=== PATIENT | female | born 2005 | race Caucasian/White ===

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

== ENCOUNTER 2023-07-24 15:12 | Emergency (ER) | payer BC, SELFPAY ==
--- NOTE | 2023-07-24 15:24 | ED.URI ---
HPI - URI/Sore Throat General Chief Complaint: Upper Respiratory Infection Stated Complaint: Sinus Problems, Trouble Breathing Time Seen by Provider: 07/24/23 15:18 Source: patient Mode of arrival: ambulatory Limitations: no limitations History of Present Illness HPI Narrative: Patient is a 17-year-old female that presents with 3 days of congestion, runny nose, headache, ear fullness, cough, sore throat shortness of breath with exertion and sinus pressure that started today. Patient denies any fever, chills, body aches, nausea, vomiting, diarrhea. 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 Has taken Benadryl and ibuprofen. Related Data Home Medications Medication Instructions Recorded Confirmed sertraline 50 mg tablet 50 mg PO DAILY 08/30/21 07/24/23 Allergies Allergy/AdvReac Type Severity Reaction Status Date / Time No Known Allergies Allergy Verified 12/25/21 15:25 Review of Systems Review of Systems: All systems reviewed & are unremarkable except as noted in HPI and below Constitutional: Constitutional: Denies body ache(s), Denies chills, Denies fatigue, Denies fever(s), Reports headache(s), Denies malaise and Denies weakness Eyes: Eyes: Denies blurry vision, Denies itchy eyes and Denies loss of vision ENT: Reports otalgia (Ear fullness), Denies headache(s), Reports nasal congestion, Reports nasal discharge, Denies sinus pain, Reports sinus pressure and Denies sore throat Cardiovascular: Cardiovascular: Denies chest pain, Denies irregular heart rhythm and Reports dyspnea on exertion Respiratory: Respiratory: Reports cough and Denies dyspnea Gastrointestinal: Gastrointestinal: Denies abdominal pain, Denies diarrhea, Denies nausea and Denies vomiting Musculoskeletal: Musculoskeletal: Denies back pain, Denies myalgias and Denies arthralgias Integumentary/Breasts: Skin/Breast: Denies pruritus and Denies rash Neurologic: Denies headache(s), Denies loss of vision and Denies weakness Psychiatric: Psychiatric: Reports no additional psychiatric complaints Endocrine: Endocrine: Denies fatigue Allergic/Immunologic: Allergic/Immunologic: Denies itchy eyes PMFSH Past Medical History Medical History Anxiety Cerumen impaction Family History Family History Father Ear problems Social History Social History Smoking status: Never smoker Alcohol intake: never Substance use: never Living arrangements: with family Occupation/Education: student Gender identity (if verbalized by the patient): Female Comments At time of signature, agree with nursing past medical, surgical, social and family history. There is no relevant family history pertinent to the presenting complaint. Exam Const: General: cooperative, healthy appearing, comfortable, no acute distress and well nourished Nutritional Appearance: well nourished Orientation/consciousness: patient oriented x3 Limitations: no limitations HENMT: Head: normal to inspection, normocephalic and atraumatic Ears: hearing grossly normal bilaterally, external ears normal, TM's normal bilaterally, EAC's normal and no periauricular adenopathy Face/Nose/Sinus: Normal external nose present, Abnormal mucous membranes and turbinates present erythematous bilateral and diffuse, normal facial exam, sinuses nontender and face symmetric Face and sinus: normal facial exam, sinuses nontender and face symmetric Mouth: Yes Normal oral and palatal mucosa present, Yes lip normal, Yes tongue normal, Yes Normal salivary glands and ducts present, Yes oropharynx normal and Yes moist mucous membranes Teeth and gingiva: dentition normal Throat: posterior oropharynx normal, tonsils normal and uvula midline Eyes: General: appearance normal, both eyes
[2023-07-24 15:25] VITALS: BP 115/72; PULSE 107; RESP 16; TEMP 37.1; O2SAT 100
== END 2023-07-24 16:01 | disposition home or self-care (01) ==
PROVIDERS: Emergency Provider Nurse Practitioner Family
DX: J06.9 Acute upper respiratory infection, unspecified (principal); Z20.822 Contact with and (suspected) exposure to COVID-19; F41.9 Anxiety disorder, unspecified
CPT/HCPCS: 87426; 99213; C9803; G0463

== ENCOUNTER 2023-11-19 17:44 | Outpatient (CLI) | payer BC, SELFPAY ==
[2023-11-19 18:44] LABS: Basophils Absolute Auto 0.1 K/mm3 (0.0-0.1); Basophils Percent Auto 0.9 % (0.2-1.2); Eosinophils Absolute Auto 0.2 K/mm3 (0-0.3); Hematocrit 35.4 % (37.0-47.0); Hemoglobin 10.3 g/dL (12.0-15.0); Immature Granulocyte Absolute 0.02 K/mm3 (0.00-0.031); Immature Granulocyte Percent A 0.3 % (0-0.5); Lymphocytes Absolute Auto 2.12 K/mm3 (0.9-3.2); Lymphocytes Percent Auto 30.8 % (18.3-44.2); Mean Corpuscular HGB Conc 29.1 g/dl (32-36); Mean Corpuscular Hemoglobin 22.8 pg (26-34); Mean Corpuscular Volume 78.3 fl (80-100); Mean Platelet Volume 10.3 fl (7.4-10.4); Monocytes Absolute Auto 0.4 K/mm3 (0.1-0.6); Monocytes Percent Auto 6.4 % (2.6-8.5); Neutrophils Percent Auto 58.6 % (45.5-73.1); Platelet Count Result 357 k/mm3 (150-375); Red Blood Count 4.52 M/mm3 (4.2-5.4); Red Cell Distribution Width 15.6 % (11.5-14.5); White Blood Count 6.9 K/mm3 (4.5-10.0)
[2023-11-19 18:58] LABS: Potassium 3.9 mmol/L (3.4-5.0)
[2023-11-19 19:02] LABS: Alanine Aminotransferase 23 U/L (6-35); Albumin Level 4.5 g/dL (3.5-5.1); Alkaline Phosphatase 103 U/L (38-126); Anion Gap 12 mmol/L (8-16); Aspartate Amino Transferase 31 U/L (14-36); Bilirubin,Total 0.3 mg/dL (0.2-1.3); Blood Urea Nitrogen 8 mg/dL (7-17); CRP < 0.5 mg/dL (<1.0); Calcium 8.8 mg/dL (8.4-10.2); Carbon Dioxide 20 mmol/L (22-30); Chloride 108 mmol/L (98-107); Estimated Glomerular Filt Rate > 60; Glucose 81 mg/dL (65-110); Sodium 140 mmol/L (137-145)
[2023-11-19 19:04] LABS: Immunoglobulin A 322 mg/dL (70-400)
[2023-11-19 19:06] LABS: Ovalocytes 2+ (NORMAL); Platelet Estimate Adequate (Adequate); Poikilocytosis 1+ (NORMAL); Schistocytes None Seen (NORMAL)
[2023-11-19 19:20] LABS: Erythrocyte Sedimentation Rate 18 mm/hr (0-20)
[2023-11-23 09:13] LABS: Tissue Transglutaminase IgA Ab >250.0 U/mL (<15.0)
== END 2023-11-19 17:45 | disposition home or self-care (01) ==
PROVIDERS: PCP Pediatrics; Visit Provider Nurse Practitioner Family
DX: R10.9 Unspecified abdominal pain (principal)
CPT/HCPCS: 36415; 80053; 82784; 84443; 85025; 85652; 86140; 86364

== ENCOUNTER 2023-12-18 01:00 | Day surgery (SDC) | payer BC, SELFPAY ==
[2023-12-04 11:39] VITALS: BMI 18.1
--- NOTE | 2023-12-16 11:24 | SUR.PREOP ---
Patient called regarding upcoming procedure. Reviewed preop instructions, appointment times, and procedure prep.
[2023-12-18 13:00] VITALS: BP 105/63; PULSE 84; RESP 19; TEMP 36.4; O2SAT 100
[2023-12-18] MEDS: LACTATED RINGERS 1,000 ML 150 ML IV CONT (13:12)
--- NOTE | 2023-12-18 13:22 | P.PNAN_ITS ---
Anes - Initial Pre Proc Eval Procedure: Operation Date: 12/18/23 14:00 Proposed Procedures p Esophagogastroduodenoscopy - Monty Carter MD Date/Time: 12/18/23 13:22 Surgeon: Monty Carter MD Pre Op Diagnosis: iron deficiency anemia, nausea, early satiety Patient Data Age: 18 Gender: F Height: 1.63 m Weight: 47.6 kg Last Vital Signs Temp 97.6 F 12/18/23 13:00 Pulse 84 12/18/23 13:00 Resp 19 12/18/23 13:00 BP 105/63 12/18/23 13:00 Pulse Ox 100 12/18/23 13:00 O2 Del Method Room Air 12/18/23 13:00 Allergies Allergy/AdvReac Type Severity Reaction Status Date / Time banana Allergy Mild Swelling Verified 12/18/23 12:59 of the Eye Home Medications Medication Instructions Recorded Confirmed Type sertraline 50 mg tablet 50 mg PO DAILY 08/30/21 12/04/23 History albuterol sulfate 90 mcg/actuation 2 puff inhalation QID PRN 07/24/23 12/04/23 Rx aerosol inhaler shortness of breath or wheezing #6.7 grams inhalational spacing device #1 ea 07/24/23 12/04/23 Rx (Aerochamber MV spacer) Laboratory Tests 12/18/23 13:03 Beta HCG, Quant Pending Patient hx anesthesia problems: none Family hx anesthesia problems: none Results Review: All pre-operative results and documents have been reviewed as part of the pre- operative evaluation. [facility] Past Medical History Medical History (Updated 12/03/23 @ 11:11 by Nieves Kirk APRN) Abdominal pain Anxiety Cerumen impaction Decreased appetite Early satiety Elevated anti-tissue transglutaminase (tTG) IgA level AUDREY (iron deficiency anemia) Loose stools Nausea Weight loss Family History Family History Father Ear problems Social History Social History Smoking status: Never smoker Alcohol intake: never Alcohol use details: Socially Substance use: never Substance use type: does not use Living arrangements: with family Occupation/Education: student Gender identity (if verbalized by the patient): Female Anechele - Nikkie Final PreProcedure Day of Procedure 12/18/23 13:22 Patient weight: normal Heart: regular rate and rhythm Lungs: clear to auscultation Airway: Mallampati scale class II Neurological: alert and oriented Last oral intake: >/= 8 hours ASA classification: II Emergent: no Anesthetic plan: proceed Anesthesia type and monitoring: general GIVS and standard monitoring Results Review: All pre-operative results and documents have been reviewed as part of the pre- operative evaluation. Informed Consent: The patient's anesthetic plan and its attendant risks and benefits were discussed with the patient/family/POA. Questions were solicited and answers provided to the satisfaction of the patient/family/POA.
--- NOTE | 2023-12-18 13:23 | WPDHPUPDATE1 ---
History and Physical Update Update Date/Time: 12/18/23 13:23 History and Physical has been reviewed, including an updated exam of the patient. There are NO changes in the patient's condition. Risks, benefits, and alternatives have been discussed and questions answered. Patient agrees to proceed with procedure.
[2023-12-18 13:42] LABS: Beta HCG Quantitative < 2.39 mIU/ML
[2023-12-18 13:54] VITALS: BP 86/48; PULSE 83; RESP 18; O2SAT 100
[2023-12-18 14:04] VITALS: BP 92/57; PULSE 72; RESP 18; O2SAT 100
[2023-12-18 14:14] VITALS: BP 107/66; PULSE 84; RESP 19; O2SAT 100
== END 2023-12-18 14:36 | disposition home or self-care (01) ==
PROVIDERS: Anesthesiology; PCP Pediatrics; Visit Provider Internal Medicine Gastroenterology
PROC: 0DJ08ZZ Inspection of Upper Intestinal Tract, Via Natural or Artificial Opening Endoscopic (ICD-10-PCS; CPT 43235; principal; 2023-12-18 14:00)
DX: K29.80 Duodenitis without bleeding (principal); K29.50 Unspecified chronic gastritis without bleeding; J45.909 Unspecified asthma, uncomplicated; F41.9 Anxiety disorder, unspecified; D50.9 Iron deficiency anemia, unspecified; Z79.51 Long term (current) use of inhaled steroids
CPT/HCPCS: 43239; 36415; 84702; 88305; 88342; J2001; J2704; J7120

== ENCOUNTER 2024-07-10 16:24 | Emergency (ER) | payer BC, SELFPAY ==
[2024-07-10 16:34] VITALS: BP 106/73; PULSE 87; RESP 16; TEMP 36.8; O2SAT 100
--- NOTE | 2024-07-10 16:45 | ED.URI ---
HPI - URI/Sore Throat General Chief Complaint: Upper Respiratory Infection Stated Complaint: SORE THROAT/CONGESTION/HEADACHE Time Seen by Provider: 07/10/24 16:45 Source: patient and RN notes reviewed Mode of arrival: ambulatory Limitations: no limitations History of Present Illness HPI Narrative: 18-year-old female presents with concern for 3 day history of sore throat, nasal congestion. She denies fever, body aches, chills, sweats. Reports she has been taking [id number]. 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 MD elicited complaint: sore throat and nasal congestion Related Data Home Medications Medication Instructions Recorded Confirmed sertraline 50 mg tablet 50 mg PO DAILY 08/30/21 12/26/23 Allergies Allergy/AdvReac Type Severity Reaction Status Date / Time banana Allergy Mild Swelling Verified 12/26/23 11:39 of the Eye amoxicillin Allergy Rash Verified 07/10/24 16:44 Review of Systems Review of Systems: CONSTITUTIONAL: Denies malaise, chills, sweats, or fever. EYES: Denies visual changes, redness, or discharge. ENT: Reports rhinorrhea, congestion, and sore throat. CARDIOVASCULAR: Denies chest pain, palpitations, or edema. RESPIRATORY: Denies cough. Denies dyspnea. GASTROINTESTINAL: Denies abdominal pain, nausea, vomiting, diarrhea SKIN: Denies rash or itching. MUSCULOSKELETAL: Denies myalgia. NEUROLOGIC: Denies headache. All systems reviewed & are unremarkable except as noted in HPI and below PMFSH Past Medical History Medical History (Updated 07/10/24 @ 16:49 by Adriana De La Rosa NP) Abdominal pain Anxiety Celiac disease Cerumen impaction Decreased appetite Early satiety Elevated anti-tissue transglutaminase (tTG) IgA level Gastritis AUDREY (iron deficiency anemia) Loose stools Nausea Weight loss Family History Family History Father Ear problems Social History Social History Smoking status: Never smoker Alcohol intake: never Alcohol use details: Socially Substance use: never Substance use type: does not use Living arrangements: with family Occupation/Education: student Gender identity (if verbalized by the patient): Female Comments At time of signature, agree with nursing past medical, surgical, social and family history. There is no relevant family history pertinent to the presenting complaint Exam Narrative: GENERAL: Well-appearing, well-nourished, and in no acute distress. HEAD: Normocephalic EYES: PERRLA, conjunctivae clear ENT: Nares clear. Mucous membranes moist. TM pearly curtis with dull light reflex bilaterally; no tragal tenderness. Oropharynx not erythematous without lesions. Tonsils not enlarged and without exudate, no drooling, no hoarseness, no trismus, uvula midline. NECK: Supple. No lymphadenopathy CHEST: Clear to auscultation, breath sounds equal. No wheezing, rhonchi, rales, or stridor. No respiratory distress, speaks in full sentences. HEART: Regular rate and rhythm. No murmur heard. SKIN: Warm, dry, no rash. NEURO: Alert and oriented x3. PSYCH: Normal mood and affect Course Course Emergency Course: Patient is aware of diagnosis, understands and agrees to treatment plan. Anticipatory guidance given. Patient agrees to follow-up as directed and is aware of reasons to seek care at the emergency department. Portions of this record may have been created with voice recognition software Level of Care: Express Care Visit Vital Signs Vital signs: Vital Signs Temperature 98.3 F 07/10/24 16:34 Pulse Rate 87 07/10/24 16:34 Respiratory Rate 16 07/10/24 16:34 Blood Pressure 106/73 07/10/24 16:34 Pulse Oximetry 100 07/10/24 16:34 Temperature 98.3 F 07/10/24 16:34 Pulse Rate 87 07/10/24 16:34 Respiratory Rate 16 07/10/24 16:34 Blood Pressure 106/73 07/10/24 16:34 Pulse Oximetry 100 07/10/24 16:34 Re
[2024-07-10 16:48] LABS: EDSTREPNEGPOS1 Negative
== END 2024-07-10 16:52 | disposition home or self-care (01) ==
PROVIDERS: Emergency Provider Nurse Practitioner; PCP Pediatrics
DX: J06.9 Acute upper respiratory infection, unspecified (principal); K90.0 Celiac disease; F41.9 Anxiety disorder, unspecified
CPT/HCPCS: 87081; 87880; 99213; G0463

== ENCOUNTER 2024-08-09 15:10 | Emergency (ER) | payer BC, SELFPAY ==
[2024-08-09] VITALS (22 sets, daily range): BP systolic 109–126; BP diastolic 70–86; PULSE 72–99; RESP 12–21; TEMP 36.8; O2SAT 98–100
--- NOTE | 2024-08-09 19:12 | PC.NURSE ---
Assumed care of patient at this time.
[2024-08-09 19:46] LABS: Basophils Absolute Auto 0.1 K/mm3 (0.0-0.1); Basophils Percent Auto 0.8 % (0.2-1.2); Eosinophils Absolute Auto 0.3 K/mm3 (0-0.3); Eosinophils Percent Auto 5.1 % (0-4.4); Hematocrit 30.2 % (37.0-47.0); Hemoglobin 9.2 g/dL (12.0-15.0); Immature Granulocyte Absolute 0.03 K/mm3 (0.00-0.031); Immature Granulocyte Percent A 0.5 % (0-0.5); Lymphocytes Absolute Auto 1.78 K/mm3 (0.9-3.2); Lymphocytes Percent Auto 26.8 % (18.3-44.2); Mean Corpuscular HGB Conc 30.5 g/dl (32-36); Mean Corpuscular Hemoglobin 22.7 pg (26-34); Mean Corpuscular Volume 74.6 fl (80-100); Mean Platelet Volume 9.7 fl (7.4-10.4); Monocytes Absolute Auto 0.5 K/mm3 (0.1-0.6); Monocytes Percent Auto 8.1 % (2.6-8.5); Neutrophils Absolute Auto 3.9 K/mm3 (1.3-6.7); Neutrophils Percent Auto 58.7 % (45.5-73.1); Platelet Count Result 307 k/mm3 (150-375); Red Blood Count 4.05 M/mm3 (4.2-5.4); Red Cell Distribution Width 17.2 % (11.5-14.5); White Blood Count 6.7 K/mm3 (4.5-10.0)
[2024-08-09] MEDS: SODIUM CHLORIDE 0.9% IV 1,000 ML 999 ML IV CONT ×2 (19:48→20:45)
[2024-08-09 19:55] LABS: Alanine Aminotransferase 14 U/L (6-35); Albumin Level 4.4 g/dL (3.5-5.1); Alkaline Phosphatase 79 U/L (38-126); Anion Gap 10 mmol/L (4-12); Aspartate Amino Transferase 27 U/L (14-36); Bilirubin,Total 0.2 mg/dL (0.2-1.3); Blood Urea Nitrogen 12 mg/dL (7-17); Calcium 8.5 mg/dL (8.4-10.2); Carbon Dioxide 20 mmol/L (22-30); Chloride 108 mmol/L (98-107); Estimated Glomerular Filt Rate > 60; Glucose 86 mg/dL (65-110); Potassium 3.8 mmol/L (3.4-5.0); Sodium 138 mmol/L (137-145)
[2024-08-09 20:05] LABS: INR 1.1; Partial Thromboplastin Time 28.4 Seconds (22.3-36.8); Prothrombin Time 14.2 Seconds (11.1-14.7)
--- NOTE | 2024-08-09 20:10 | ED.GENADULT ---
HPI - General Adult General Chief complaint: Recheck/Abnormal Lab/Rx Stated complaint: losing balance Time Seen by Provider: 08/09/24 18:52 History of Present Illness HPI narrative: 18-year-old female presented to the emergency department for evaluation for intermittent lightheaded dizziness. Patient does have a longstanding history anemia. Patient initially attributed this to her celiac disease. Patient states her celiac disease is currently under control. Patient states over the course of the last few weeks she has had increased episodes of lightheaded dizziness that is worsened with exertion. Patient is currently menstruating but denies history of heavy menses. Patient denies any current chest pain shortness of breath nausea vomiting or diarrhea. Related Data Home Medications Medication Instructions Recorded Confirmed sertraline 50 mg tablet 50 mg PO DAILY 08/30/21 12/26/23 Allergies Allergy/AdvReac Type Severity Reaction Status Date / Time banana Allergy Mild Swelling Verified 08/09/24 19:38 of the Eye amoxicillin Allergy Rash Verified 08/09/24 19:38 Review of Systems Review of Systems: All systems reviewed & are unremarkable except as noted in HPI and below PMFSH Past Medical History Medical History (Updated 08/10/24 @ 00:00 by Background Daemon) Abdominal pain Anxiety Celiac disease Cerumen impaction Decreased appetite Early satiety Elevated anti-tissue transglutaminase (tTG) IgA level Gastritis AUDREY (iron deficiency anemia) Loose stools Nausea Weight loss Family History Family History Father Ear problems Social History Social History Smoking status: Never smoker Alcohol intake: never Alcohol use details: Socially Substance use: never Substance use type: does not use Living arrangements: with family Occupation/Education: student Gender identity (if verbalized by the patient): Female Exam Narrative: APPEARANCE: Well appearing, no pain, no distress, well-nourished. HEAD: normocephalic, atraumatic. EYES: PERRLA/EOMI, conjunctivae clear. NOSE: Normal no drainage EARS:TMS clear with good light reflex. THROAT: Pharynx clear, no exudate. NECK: Supple. No adenopathy, no masses. RESPIRATORY: Airway patent, respirations nonlabored. Clear to auscultation bilaterally, no rales, rhonchi, wheezing. CARDIOVASCULAR: Regular rate and rhythm without murmurs rubs or gallops. ABDOMINAL: Soft, nontender, nondistended, normal bowel sounds MUSCULOSKELETAL: Moves all extremities. Strength/ROM intact, No edema, No calf tenderness. NEURO: Alert. Cranial nerves II through XII intact. Good gait. Good coordination SKIN: Warm, dry. Normal Color Course Vital Signs Vital signs: Vital Signs Temperature 98.2 F 08/09/24 15:18 Pulse Rate 99 08/09/24 15:18 Respiratory Rate 16 08/09/24 15:18 Blood Pressure 122/80 08/09/24 15:18 Pulse Oximetry 100 08/09/24 15:18 Oxygen Delivery Room Air 08/09/24 15:18 Temperature 98.2 F 08/09/24 15:18 Pulse Rate 93 08/09/24 22:22 Respiratory Rate 20 08/09/24 22:22 Blood Pressure 110/70 08/09/24 22:22 Pulse Oximetry 100 08/09/24 22:22 Oxygen Delivery Room Air 08/09/24 19:38 Medical Decision Making MDM Narrative Medical decision making narrative: 18-year-old female presents emergency department for evaluation for concern of anemia and lightheadedness. Patient is not tachycardic. Patient had negative orthostatic vital signs. Patient does have a mild anemia with a hemoglobin of 9.2. Patient's presents hemoglobin was 10.3. No acute abnormalities on the patient's CMP. Differential Diagnosis Differential Diagnosis: Dehydration, anemia, infection Vital Signs Vital Signs: Vital Signs Temperature 98.2 F 08/09/24 15:18 Pulse Rate 99 08/09/24 15:18 Respiratory Rate 16 08/09/24 15:18 Blood P
[2024-08-09 20:18] LABS: Anisocytosis 1+; Burr Cells 1+; Hypochromasia 1+; Large Platelets Present; Ovalocytes 2+; Platelet Estimate Adequate (Adequate); Poikilocytosis 1+; Schistocytes Rare
== END 2024-08-09 22:25 | disposition home or self-care (01) ==
PROVIDERS: Emergency Provider Emergency Medicine; PCP Pediatrics
DX: R42 Dizziness and giddiness (principal); D64.9 Anemia, unspecified; K90.0 Celiac disease; D50.9 Iron deficiency anemia, unspecified; F41.9 Anxiety disorder, unspecified
CPT/HCPCS: 36415; 80053; 85025; 85610; 85730; 96360; 96361; 99283; J7030

== ENCOUNTER 2024-12-16 14:08 | Emergency (ER) | payer BC, SELFPAY ==
--- NOTE | 2024-12-16 14:18 | ED.URI ---
HPI - URI/Sore Throat General Chief Complaint: Upper Respiratory Infection Stated Complaint: SORE THROAT/FEVER Time Seen by Provider: 12/16/24 14:10 Source: patient Mode of arrival: ambulatory Limitations: no limitations History of Present Illness HPI Narrative: Patient is a 19-year-old female who presents with sore throat, congestion and fever for 2 days. Patient reports sore throat is worse in the morning. Denies any nausea vomiting, diarrhea. Has taken [id number] medications with no relief. Related Data Home Medications ?Medication ?Instructions ?Recorded ?Confirmed ?Last Taken ?Type sertraline 50 mg tablet 50 mg PO DAILY 08/30/21 12/26/23 Unknown History Allergies Allergy/AdvReac Type Severity Reaction Status Date / Time banana Allergy Mild Swelling Verified 12/16/24 14:31 of the Eye amoxicillin Allergy Rash Verified 12/16/24 14:31 Review of Systems Review of Systems: All systems reviewed & are unremarkable except as noted in HPI and below Constitutional: Constitutional: Denies body ache(s), Denies chills, Denies fatigue, Reports fever(s), Denies headache(s), Denies malaise and Denies weakness Eyes: Eyes: Denies blurry vision, Denies itchy eyes and Denies loss of vision ENT: Denies otalgia, Denies headache(s), Reports nasal congestion, Denies sinus pain and Reports sore throat Cardiovascular: Cardiovascular: Denies chest pain, Denies irregular heart rhythm and Denies dyspnea Respiratory: Respiratory: Denies cough and Denies dyspnea Gastrointestinal: Gastrointestinal: Denies abdominal pain, Denies diarrhea, Denies nausea and Denies vomiting Musculoskeletal: Musculoskeletal: Denies back pain, Denies myalgias and Denies arthralgias Integumentary/Breasts: Skin/Breast: Denies pruritus and Denies rash Neurologic: Denies headache(s), Denies loss of vision and Denies weakness Psychiatric: Psychiatric: Reports no additional psychiatric complaints Endocrine: Endocrine: Denies fatigue Allergic/Immunologic: Allergic/Immunologic: Denies itchy eyes PMFSH Past Medical History Medical History Gastritis Celiac disease Loose stools Abdominal pain Decreased appetite Weight loss Early satiety Nausea AUDREY (iron deficiency anemia) Elevated anti-tissue transglutaminase (tTG) IgA level Cerumen impaction Anxiety Family History Family History Father Ear problems Social History Social History Smoking status: Never smoker Alcohol intake: never Alcohol use details: Socially Substance use: never Substance use type: does not use Living arrangements: with family Occupation/Education: student Gender identity (if verbalized by the patient): Female Comments At time of signature, agree with nursing past medical, surgical, social and family history. There is no relevant family history pertinent to the presenting complaint. Exam Const: General: cooperative, healthy appearing, comfortable, no acute distress and well nourished Nutritional Appearance: well nourished Orientation/consciousness: patient oriented x3 Limitations: no limitations HENMT: Head: normal to inspection, normocephalic and atraumatic Ears: hearing grossly normal bilaterally, external ears normal, TM's normal bilaterally, no periauricular adenopathy and Abnormal EAC present excessive cerumen bilateral Face/Nose/Sinus: Normal external nose present, Abnormal mucous membranes and turbinates present erythematous bilateral and diffuse, normal facial exam, sinuses nontender and face symmetric Face and sinus: normal facial exam, sinuses nontender and face symmetric Mouth: Yes Normal oral and palatal mucosa present, Yes lip normal, Yes tongue normal, Yes Normal salivary glands and ducts present, Yes oropharynx normal and Yes moist mucous membranes Teeth and gingiva: dentition normal Throat: posterior oropharynx normal, tonsils normal and uvula midline Eyes: General: appearance normal, both eyes and all related structures Alignment and Position: alignment normal and position normal Periorbital: periorbital findings normal Eyelids: eyelids normal Pupils: Equal, round and reactive pupils present Neck: Neck: normal visual inspection, full ROM, no lymphadenopathy and supple Chest: Chest palpation & inspection: normal inspection of the chest and normal palpation of entire chest wall Resp: Effort & Inspection: normal respiratory effort and able to speak in complete sentences Auscultation: clear to auscultation bilaterally, no crackles, no rales, no rhonchi and no wheezes Cardio: Rate: regular rate Rhythm: regular rhythm Heart sounds: S1 normal heart sound present and S2 normal heart sound present GI: Inspection: normal to inspection Skin: General skin exam: normal color and no rashes or lesions noted Neuro: General: patient oriented x3 and moves all extremities Cranial nerves: Yes Equal, round and reactive pupils present Speech: normal speech Gait exam (Neuro): Normal gait present Extrem: General: normal to inspection, full ROM and no edema Psych: Appearance: grossly normal and well kempt Mental Status: mental status grossly normal Speech and movement: Normal speech and movement present Affect: normal affect Attitude: cooperative Thought process: Normal thought process present Course Course Emergency Course: Discharge instructions reviewed with patient, as well as provided in writing per nursing staff. The instructions also include specific and strict return/GO TO THE ER as well as f/u information. All questions have been answered, and the patient deny any further questions with discharge and discharge plan. Portions of this record may have been created with voice recognition software Level of Care: Express Care Visit Vital Signs Vital signs: Vital Signs Temperature 36.8 C 12/16/24 14:29 Pulse Rate 94 12/16/24 14:29 Respiratory Rate 16 12/16/24 14:29 Blood Pressure 112/73 12/16/24 14:29 Pulse Oximetry 100 12/16/24 14:29 Temperature 36.8 C 12/16/24 14:29 Pulse Rate 94 12/16/24 14:29 Respiratory Rate 16 12/16/24 14:29 Blood Pressure 112/73 12/16/24 14:29 Pulse Oximetry 100 12/16/24 14:29 Reviewed MDM - URI/Sore Throat MDM Narrative Medical decision making narrative: Pt well hydrated appearing, in no respiratory distress, hemodynamically stable. Recommend supportive care. The patient is stable at time of discharge the clinical impression was discussed and the patient was given the opportunity to ask questions, which were addressed as completely as possible given the information available at present. Anticipatory guidance and return to care precautions were discussed and the importance of primary care follow-up was stressed and encouraged. The patient voiced understanding of the plan, indications to return, and the need for follow-up. Differential diagnosis considered: Napier virus, strep pharyngitis, allergic rhinitis, upper respiratory tract infection, sinusitis, rhinosinusitis, nasopharyngitis. viral pharyngitis, otitis media, otitis externa, otitis effusion, foreign body, cerumen impaction, viral syndrome, and influenza.? Exam findings show no acute concerns or changes; patient is non-toxic appearing and is in no distress.? Patient is appropriate for outpatient treatment and follow-up.? Medical Records Attestation: I reviewed the patient's medical records. Lab Data Attestation: I reviewed the patient's lab results. Labs: Lab Results 12/16/24 Range/Units 14:42 POC Grp A Strep Screen Negative (Negative) Discharge Plan Discharge Clinical Impression: Upper respiratory infection Qualifiers: URI type: acute nasopharyngitis (common cold) Qualified Code(s): J00 - Acute nasopharyngitis [common cold] Patient Disposition: Home, Self-Care Condition: Stable Instructions: Upper Respiratory Infection (ED) Additional Instructions: Your rapid strep swab was negative today at [facility]. A throat culture will be sent to the laboratory for further testing. If the test is positive, you will receive a phone call within 48 hours and an appropriate antibiotic will be initiated at that time. Your symptoms are likely due to a viral illness, which is not treated with antibiotics. Viral symptoms can be present for up to a few weeks. -Alternate Tylenol and Motrin per package directions for fever or pain. -Antihistamine medication such as Benadryl/Zyrtec at night and Claritin/Alma during the day can help improve symptoms. -Use Flonase twice a day for 5 days then daily to help reduce the inflammation and dry up your sinuses. -You can also use Sudafed behind the pharmacy counter(12 or 24 hour). Be sure to drink plenty of water with these medications at least 8 ounces with every dose and it is important to drink 8 to 10 glasses of water per day. Water is a natural decongestant -Eat and drink things that are easy to swallow, like tea or soup, or popsicles. -Oral rinses such as: Salt water gargles and/or may use topical anesthetic (eg. Chloraseptic spray) or lozenges to relieve dryness or throat pain). -Frequent hand washing or hand [employer] is one of the best ways to prevent spread of infection. -Using a vaporizer or humidifier at night will also help thin secretions and help with coughing up phlegm. -Follow up with primary care provider in 3-5 days if condition is not improving - For new or worsening symptoms go directly to the nearest ER Patient Language: Montserratian Prescriptions: No Action sertraline 50 mg tablet 50 mg PO DAILY Follow-up/Referrals: Nan Alexander MD [Primary Care Provider] - 3 Days Time of Disposition: 14:54
[2024-12-16 14:29] VITALS: BP 112/73; PULSE 94; RESP 16; TEMP 36.8; O2SAT 100
[2024-12-16 14:44] LABS: EDSTREPNEGPOS1 Negative (Negative)
== END 2024-12-16 15:00 | disposition home or self-care (01) ==
PROVIDERS: Emergency Provider Nurse Practitioner Family; PCP Pediatrics
DX: J00 Acute nasopharyngitis [common cold] (principal)
CPT/HCPCS: 87081; 87880; 99213; G0463

== ENCOUNTER 2025-06-17 16:44 | Emergency (ER) | payer BC, SELFPAY ==
[2025-06-17 16:53] VITALS: BP 111/77; PULSE 93; RESP 18; TEMP 36.6; O2SAT 100
--- NOTE | 2025-06-17 17:12 | ED.URI ---
HPI - URI/Sore Throat General Chief Complaint: Upper Respiratory Infection Stated Complaint: Cough/Sore Throat/Fever Source: patient Mode of arrival: ambulatory Limitations: no limitations History of Present Illness HPI Narrative: 19-year-old presented for complaint of cough, nasal congestion and drainage, headache and ear pressure for 3 weeks. Also endorses a ?rattling? sound with deep breaths. Cough is rarely productive. She feels she cannot take in a full deep breath. Endorses intermittent fevers and sore throat. Denies nausea, vomiting, diarrhea or lethargy. Related Data Home Medications ?Medication ?Instructions ?Recorded ?Confirmed ?Last Taken ?Type sertraline 50 mg tablet 50 mg PO DAILY 08/30/21 06/17/25 Unknown History Allergies Allergy/AdvReac Type Severity Reaction Status Date / Time banana Allergy Mild Swelling Verified 06/17/25 16:52 of the Eye Penicillins Allergy Unknown Hives Verified 06/17/25 16:52 amoxicillin Allergy Rash Verified 06/17/25 16:52 Review of Systems Review of Systems: CONSTITUTIONAL: Denies body aches, fever, chills, or sweats. EYES: Denies visual changes, redness, or discharge. ENT: reports rhinorrhea, congestion, sore throat, or otalgia. CARDIOVASCULAR: Denies chest pain, palpitations, or edema. RESPIRATORY: Reports cough, denies sob, wheezing. GASTROINTESTINAL: Denies abdominal pain, nausea, vomiting, or diarrhea. SKIN: Denies rash MUSCULOSKELETAL: Denies back pain NEUROLOGIC: Denies headache, numbness, tingling, or weakness. All systems reviewed & are unremarkable except as noted in HPI and below PMFSH Past Medical History Medical History Gastritis Celiac disease Loose stools Abdominal pain Decreased appetite Weight loss Early satiety Nausea AUDREY (iron deficiency anemia) Elevated anti-tissue transglutaminase (tTG) IgA level Cerumen impaction Anxiety Family History Family History Father Ear problems Social History Social History Smoking status: Never smoker Alcohol intake: never Alcohol use details: Socially Substance use: never Substance use type: does not use Living arrangements: with family Occupation/Education: student Gender identity (if verbalized by the patient): Female Comments At time of signature, I have reviewed and agree with nursing past medical, surgical, social and family history unless otherwise noted. Please see nursing chart for further information. There is no relevant family history pertinent to the presenting complaint Exam Narrative: GENERAL: Well-appearing, in no acute distress. EYES: EOMI. No redness or drainage. Conjunctivae normal. ENT: Mucous membranes pink and moist. Nasal congestion and rhinorrhea. TMs normal bilaterally. Throat normal. Uvula midline. NECK: Normal AROM. Supple. CHEST: No respiratory distress. Occasional moist marshmallow runner cough. Lungs coarse to all jiménez, improves with cough. HEART: Regular rate and rhythm. No murmur appreciated. ABDOMEN: Soft, nontender, nondistended, normal active bowel sounds. EXTREMITIES: Normal range of motion. SKIN: Warm, dry, no rash. Capillary refill normal. Normal skin turgor. NEURO: Alert and oriented x3. Gait steady. PSYCH: Normal affect. Course Course Emergency Course: Patient is aware of diagnosis, understands and agrees to treatment plan. Anticipatory guidance given. Patient agrees to follow-up as directed and is aware of reasons to seek care at the emergency department. Portions of this record may have been created with voice recognition software Level of Care: Express Care Visit Vital Signs Vital signs: Vital Signs Temperature 97.9 F 06/17/25 16:53 Pulse Rate 93 06/17/25 16:53 Respiratory Rate 18 06/17/25 16:53 Blood Pressure 111/77 06/17/25 16:53 Pulse Oximetry 100 06/17/25 16:53 Temperature 97.9 F 06/17/25 16:53 Pulse Rate 93 06/17/25 16:53 Respiratory Rate 18 06/17/25 16:53 Blood Pressure 111/77 06/17/25 16:53 Pulse Oximetry 100 06/17/25 16:53 MDM - URI/Sore Throat MDM Narrative Medical decision making narrative: Discussed physical exam findings. Advised supportive measures and signs/symptoms to go to the ER. Pt is appropriate for outpt treatment and f/u. Differential Diagnosis Differential diagnosis: Likely upper respiratory infection, sinusitis, viral infection, bronchitis, pharyngitis and other (Angioedema, perforation, asthma, pneumonia, PE, tension pneumothorax, cardiac tamponade [place], pericarditis, pleural effusion, CHF, bronchitis, cardiac arrhythmia) Discharge Plan Discharge Clinical Impression: Bronchitis Patient Disposition: Home Condition: Stable Instructions: Antibiotic Form, Acute Bronchitis (ED) Additional Instructions: Take medication as directed albuterol inhaler as needed for shortness of breath/wheezing Recommendations: Flonase spray and Zyrtec (or Claritin/Alma) for nasal congestion over the counter Cough syrup may cause drowsiness; avoid driving or take it at night time. Tylenol every 8 hours as needed for pain Symptomatic treatment includes: rest, fluids, and increase humidity of the air at home. Follow up with your primary care provider as needed in 1 week Go to the ER for worsening symptoms or concerns Patient Language: Barbadian Prescriptions: New azithromycin [Zithromax Z-Armani] 250 mg tablet See Rx Instructions .ROUTE .COMPLEX Qty: 6 0RF Rx Instructions: For 250 mg dose pack: take 500 mg today (day 1), then 250 mg for 4 days (days 2-5) benzonatate 200 mg capsule 200 mg PO TID PRN (Reason: cough) Qty: 20 0RF methylprednisolone [Medrol (Armani)] 4 mg tablets,dose pack See Rx Instructions .ROUTE .COMPLEX Qty: 21 0RF Rx Instructions: orally per package directions albuterol sulfate 90 mcg/actuation HFA aerosol inhaler 2 inh inhalation QID PRN (Reason: shortness of breath or wheezing) Qty: 8.5 0RF No Action sertraline 50 mg tablet 50 mg PO DAILY Follow-up/Referrals: Nan Alexander MD [Primary Care Provider] - Time of Disposition: 17:20
== END 2025-06-17 17:23 | disposition home or self-care (01) ==
PROVIDERS: Emergency Provider Nurse Practitioner Family; PCP Pediatrics
DX: J40 Bronchitis, not specified as acute or chronic (principal); K90.0 Celiac disease; F41.9 Anxiety disorder, unspecified
CPT/HCPCS: 99213; G0463

== ENCOUNTER 2025-08-29 11:49 | Emergency (ER) | payer BC, SELFPAY ==
[2025-08-29 12:03] VITALS: BP 108/77; PULSE 120; RESP 16; TEMP 37.3; O2SAT 100
[2025-08-29 12:14] LABS: EDSTREPNEGPOS1 Positive (Negative)
[2025-08-29 12:20] LABS: EDCOVIDSCREEN Negative (Negative); EDINFLUASCREEN Negative (Negative); EDINFLUBSCREEN Negative (Negative)
--- NOTE | 2025-08-29 12:20 | ED_ITS ---
HPI - URI/Sore Throat General Chief Complaint: Upper Respiratory Infection Stated Complaint: strep symptoms Time Seen by Provider: 08/29/25 12:09 Source: patient and RN notes reviewed Mode of arrival: ambulatory Limitations: no limitations History of Present Illness HPI Narrative: 19-year-old female patient presents today complaining of sore throat, chills, body aches, fever with a T-max of 102?. Symptoms began yesterday. Currently rates her pain 8/10. Pain increases with swallowing. She has tried Tylenol and NyQuil without improvement. Denies shortness of breath. Related Data Home Medications ?Medication ?Instructions ?Recorded ?Confirmed ?Last Taken ?Type escitalopram oxalate 10 mg tablet 10 mg PO DAILY 08/2908/29/25 Unknown History (Lexapro) Allergies Allergy/AdvReac Type Severity Reaction Status Date / Time banana Allergy Mild Swelling Verified 08/29/25 11:57 of the Eye Penicillins Allergy Unknown Hives Verified 08/29/25 11:57 amoxicillin Allergy Rash Verified 08/29/25 11:57 PMFSH Past Medical History Medical History Gastritis Celiac disease Loose stools Abdominal pain Decreased appetite Weight loss Early satiety Nausea AUDREY (iron deficiency anemia) Elevated anti-tissue transglutaminase (tTG) IgA level Cerumen impaction Anxiety Family History Family History Father Ear problems Social History Social History Smoking status: Never smoker Alcohol intake: never Alcohol use details: Socially Substance use: never Substance use type: does not use Living arrangements: with family Occupation/Education: student Gender identity (if verbalized by the patient): Female Comments At time of signature, I have reviewed and agree with nursing past medical, surgical, social and family history unless otherwise noted. Please see nursing chart for further information. There is no relevant family history pertinent to the presenting complaint Exam Narrative: GENERAL: Well-appearing, well-nourished, and in no acute distress. HEAD: Normocephalic, atraumatic. EYES: EOMI. No redness or drainage. Conjunctivae normal. ENT: Mucous membranes pink and moist. Nares clear. No rhinorrhea. TMs normal bilaterally. Throat mildly erythematous without edema or exudate. Uvula midline. NECK: Normal AROM. Supple. No lymphadenopathy. CHEST: No respiratory distress. Clear to auscultation. HEART: Regular rhythm. No murmur appreciated. + tachycardic EXTREMITIES: Normal range of motion. No edema. SKIN: Warm, dry, no rash. Capillary refill normal. Normal skin turgor. NEURO: No focal deficits. Alert and oriented x3. Gait steady. PSYCH: Normal affect. No signs of depression or anxiety. Course Course Level of Care: Express Care Visit Vital Signs Vital signs: Vital Signs Temperature 99.2 F 08/29/25 12:03 Pulse Rate 120 H 08/29/25 12:03 Respiratory Rate 16 08/29/25 12:03 Blood Pressure 108/77 08/29/25 12:03 Pulse Oximetry 100 08/29/25 12:03 Temperature 99.2 F 08/29/25 12:03 Pulse Rate 120 H 08/29/25 12:03 Respiratory Rate 16 08/29/25 12:03 Blood Pressure 108/77 08/29/25 12:03 Pulse Oximetry 100 08/29/25 12:03 Reviewed MDM - URI/Sore Throat MDM Narrative Medical decision making narrative: 19-year-old female patient presents today complaining of sore throat, chills, body aches, fever with a T-max of 102?. Symptoms began yesterday. Currently rates her pain 8/10. Pain increases with swallowing. She has tried Tylenol and NyQuil without improvement. Upon exam, patient is throat is mildly erythematous without edema or exudate. Rapid strep positive. COVID and influenza negative. Patient has a penicillin allergy which causes hives. She typically takes azithromycin for her strep throat infections. She was recently on azithromycin for bronchitis, but it has been greater than [address] her back on it. Vital signs stable. Patient mildly tachycardic, but likely due to recent fever. Patient agrees with plan. Anticipatory guidance given. Differential Diagnosis Differential diagnosis: Likely upper respiratory infection, viral infection, influenza, pharyngitis and other (Strep throat, COVID) Lab Data Attestation: I reviewed the patient's lab results. Lab results narrative: COVID negative, influenza negative Labs: Lab Results 08/29/25 Range/Units 12:12 POC Grp A Strep Screen Positive (Negative) Critical Care Time Critical Care Time Critical Care Time: No Discharge Plan Discharge Clinical Impression: Strep throat Patient Disposition: Home Condition: Stable Instructions: Antibiotic Form, Strep Throat (DC) Additional Instructions: You have tested positive for strep throat. Please take the azithromycin as prescribed until gone. You will be contagious for 24 hours after starting the medication. Take Tylenol or Ibuprofen for pain or fever, if able. Rest and stay hydrated. Follow up with your PCP in 3 days if symptoms are not improving. Go to the ER immediately if you develops worsening symptoms such as shortness of breath, difficulty swallowing. Patient Language: Icelandic Prescriptions: New azithromycin 500 mg tablet 500 mg PO DAILY 3 Days Qty: 3 0RF No Action escitalopram oxalate [Lexapro] 10 mg tablet 10 mg PO DAILY Follow-up/Referrals: Nan Alexander MD [Primary Care Provider, Pediatrics] Stand Alone Forms: Work/School Release IP Time of Disposition: 12:25
== END 2025-08-29 12:31 | disposition home or self-care (01) ==
PROVIDERS: Emergency Provider Nurse Practitioner; PCP Pediatrics
DX: J02.0 Streptococcal pharyngitis (principal); K90.0 Celiac disease; Z20.822 Contact with and (suspected) exposure to COVID-19
CPT/HCPCS: 87426; 87804; 87880; 99213; G0463